=== PATIENT | male | born 1975 | race Caucasian/White ===

== ENCOUNTER → 2020-06-04 11:13 | Outpatient (BNVA) | payer OTHER, SELFPAY | PROVIDERS: Visit Provider Physician Assistant | DX: S49.91XA Unspecified injury of right shoulder and upper arm, initial encounter (principal); W17.89XA Other fall from one level to another, initial encounter | CPT/HCPCS: 99204 ==

== ENCOUNTER → 2020-06-10 13:09 | Outpatient (BNVA) | payer OTHER, SELFPAY | PROVIDERS: Visit Provider Physician Assistant | DX: S46.912D Strain of unspecified muscle, fascia and tendon at shoulder and upper arm level, left arm, subsequent encounter (principal); X58.XXXD Exposure to other specified factors, subsequent encounter | CPT/HCPCS: 99213 ==